=== PATIENT | female | born 1985 | race Caucasian/White ===

== ENCOUNTER 2020-02-29 12:37 | Emergency (ER) | payer SELFPAY ==
[~2020-02-29] VITALS: Ht 165.1 cm; Wt 64.5 kg
[2020-02-29 12:50] VITALS: BP 114/73
--- NOTE | 2020-02-29 13:00 | NUR ---
C/O ABCESS-LIKE BUMP TO R BERMUDEZ, PER PT SHE NOTICED IT 2 DAYS AGO AND STATES IT IS A SPIDER BITE. ERYTHEMA, WARMTH/TENDERNESS & SWELLING NOTED TO AREA SURROUNDING THE BUMP. PT DENIES FEVER, N/V. PT ADMITS TO METHAMPHETAMINE USE BUT DENIES "POPPING". BED IN LOW POSITION, SIDE RAIL UP X1. PT CHANGED INTO GOWN.
--- NOTE | 2020-02-29 13:06 | NUR ---
DR. JIMENEZ EVALUATING PT AT BEDSIDE
[2020-02-29] MEDS ORDERED: LIDOCAINE/PRILOCAINE 2.5% 5 GM TUBE TP ONE (13:10)
--- NOTE | 2020-02-29 14:11 | NUR ---
Patient discharged with v/s stable. Written and verbal after care instructions given and explained. Patient alert, oriented and verbalized understanding of instructions. Ambulatory with steady gait. All questions addressed prior to discharge. ID band removed. Patient advised to follow up with PMD. Rx of BACTRIM, TYLENOL given. Patient educated on indication of medication including possible reaction and side effects. Opportunity to ask questions provided and answered.
[2020-02-29 14:12] VITALS: BP 114/73
== END 2020-02-29 14:11 | disposition home or self-care (01) ==
LOC: MED 12:37
DX: L02.415 Cutaneous abscess of right lower limb (principal); F17.210 Nicotine dependence, cigarettes, uncomplicated; F15.10 Other stimulant abuse, uncomplicated; R56.9 Unspecified convulsions; Z88.0 Allergy status to penicillin
CPT/HCPCS: 99282; 99283

== ENCOUNTER 2020-07-28 11:47 | Emergency (ER) | payer MEDICAID ==
[~2020-07-28] VITALS: Ht 167.6 cm; Wt 67.6 kg
[2020-07-28 11:50] VITALS: BP 125/79
--- NOTE | 2020-07-28 12:29 | NUR ---
AMBULATED TO BED 6
--- NOTE | 2020-07-28 12:36 | NUR ---
35 y/o female from streets c/o abd discomfort x 3 wks with nausea/vomiting x 3 days. Pt states she is unable to eat food without vomiting. 8/10 abd pain provoked by vomiting. LMP was approx 3 months ago, does not remember LMP. Abd soft, round, nontender to palp, bowel sounds active x 4 quad. VSS medhx: seizures
--- NOTE | 2020-07-28 12:38 | NUR ---
Lab at bedside for blood draw.
[2020-07-28 12:48] LABS: BASOPHILS # (AUTO) 0.1 K/uL (0.00-0.22); BASOPHILS % (AUTO) 0.5 % (0.0-2.0); EOSINOPHILS % (AUTO) 0.1 % (0.0-4.0); HEMATOCRIT 39.8 % (36-48); HEMOGLOBIN 13.5 g/dL (12.0-16.0); LYMPHOCYTES # (AUTO) 1.2 K/uL (2.5-16.5); LYMPHOCYTES % (AUTO) 8.3 % (20.5-51.1); MEAN CORPUSCULAR HEMOGLOBIN 29 pg (27-31); MEAN CORPUSCULAR HGB CONC 34 g/dL (33-37); MEAN CORPUSCULAR VOLUME 84.8 fL (80-94); MONOCYTES # (AUTO) 0.9 K/uL (0.8-1.0); MONOCYTES % (AUTO) 6.1 % (1.7-9.3); NEUTROPHILS # (AUTO) 12.1 K/uL (1.8-7.7); PLATELET COUNT (AUTO) 371 K/uL (140-450); WHITE BLOOD COUNT (AUTO) 14.3 K/uL (4.8-10.8)
[2020-07-28] MEDS ORDERED: METOCLOPRAMIDE 10 MG TAB PO ONE (13:00)
[2020-07-28 13:02] LABS: ALBUMIN 3.3 g/dL (3.4-5.0); ANION GAP 14.5 (8-16); CARBON DIOXIDE 22.7 mmol/L (21-32); CREATININE 1.2 mg/dL (0.6-1.3); POTASSIUM 3.2 mmol/L (3.5-5.1); TOTAL BILIRUBIN 0.9 mg/dL (0.0-1.0)
[2020-07-28 13:15] LABS: BILIRUBIN,URINE NEGATIVE (NEGATIVE); COLOR,URINE YELLOW (YELLOW); LEUKOCYTE ESTERASE ,URINE TRACE (NEGATIVE); NITRITE, URINE NEGATIVE (NEGATIVE); PH,URINE 6.5 (5.0-9.0); UGLUCOSE 1+ (NEGATIVE)
[2020-07-28 13:26] LABS: APPEARANCE,URINE SLIGHTLY HAZY (CLEAR)
[2020-07-28 13:28] LABS: RBC,URINE 0-5 /HPF (0-5)
[2020-07-28 13:29] LABS: BLOOD, URINE 1+ (NEGATIVE)
[2020-07-28 13:30] LABS: WBC,URINE 0-5 /HPF (0-5)
[2020-07-28 13:33] LABS: BARBITURATE, URINE NEGATIVE ng/ml (NEG <=200); BENZODIAZEPINE, URINE NEGATIVE ng/mL (NEG <=200); CANNABINOID, URINE POS ng/mL (NEG <=50)
[2020-07-28 13:34] LABS: COCAINE, URINE NEGATIVE ng/mL (NEG <=300); OPIATE, URINE NEGATIVE ng/mL (NEG <=2000); PHENCYCLIDINE SCREEN,URINE NEGATIVE ng/mL (NEG <=25)
--- NOTE | 2020-07-28 15:07 | NUR ---
Dr. Eisenberg is reevaluating the patient at bedside.
[2020-07-28 15:16] VITALS: BP 115/73
--- NOTE | 2020-07-28 15:16 | NUR ---
Patient discharged with v/s stable. Written and verbal after care instructions given and explained. Patient alert, oriented and verbalized understanding of instructions. Ambulatory with steady gait. All questions addressed prior to discharge. ID band removed. Patient advised to follow up with PMD. Rx of CEPHALEXIN, REGLAN given. Patient educated on indication of medication including possible reaction and side effects. Opportunity to ask questions provided and answered.
== END 2020-07-28 15:10 | disposition home or self-care (01) ==
LOC: MED 11:47
DX: O21.9 Vomiting of pregnancy, unspecified (principal); O23.41 Unspecified infection of urinary tract in pregnancy, first trimester; R56.9 Unspecified convulsions; Z88.0 Allergy status to penicillin; Z3A.08 8 weeks gestation of pregnancy
CPT/HCPCS: 36415; 76817; 80053; 80305; 81001; 81025; 84702; 85025; 99284; J8597

== ENCOUNTER 2023-05-08 10:17 | Emergency (ER) | payer SELFPAY ==
[~2023-05-08] VITALS: Ht 165.1 cm; Wt 66.7 kg
[2023-05-08 10:28] VITALS: BP 121/72; PULSE 73; RESP 16; TEMP 98.7; O2SAT 99
[2023-05-08 11:05] VITALS: BP 121/72; PULSE 73; RESP 16; TEMP 98.7
[2023-05-08] MEDS ORDERED: IBUP-2213 PO (11:19)
[2023-05-08 11:20] VITALS: O2SAT 99
[2023-05-08] MEDS ORDERED: KETOROLAC 30 MG/ML VIAL IM ONE (11:20)
== END 2023-05-08 11:57 | disposition home or self-care (01) ==
LOC: MED 10:17
DX: K08.89 Other specified disorders of teeth and supporting structures (principal); G44.209 Tension-type headache, unspecified, not intractable; Z86.69 Personal history of other diseases of the nervous system and sense organs; Z79.1 Long term (current) use of non-steroidal anti-inflammatories (NSAID); Z88.0 Allergy status to penicillin
CPT/HCPCS: 81025; 96372; 99283; J1885

== ENCOUNTER 2024-06-06 15:00 | Emergency (ER) | payer MEDICAID ==
[~2024-06-06] VITALS: Ht 167.6 cm; Wt 89.8 kg
[~2024-06-06 15:00] MED LIST: IBUP-2213 PO
[2024-06-06 15:19] VITALS: BP 137/87; PULSE 69; RESP 18; TEMP 97.8; O2SAT 98
[2024-06-06 17:17] LABS: ANION GAP 10.3 (8-16); CALCIUM 9.1 mg/dL (8.5-10.1); CARBON DIOXIDE 28.6 mmol/L (21-32); CREATININE 0.9 mg/dL (0.6-1.3); POTASSIUM 3.9 mmol/L (3.5-5.1)
[2024-06-06] MEDS ORDERED: IBUP-2213 PO (18:07)
[2024-06-06] MEDS: KETOROLAC 30 MG/ML VIAL IM ONE (18:15)
[2024-06-06] MEDS ORDERED: KETOROLAC 30 MG/ML VIAL ONE (18:32)
[2024-06-06 18:50] VITALS: BP 135/74; PULSE 88; RESP 20; TEMP 97.3; O2SAT 97
== END 2024-06-06 18:45 | disposition home or self-care (01) ==
LOC: MED 15:00
DX: R60.9 Edema, unspecified (principal); M54.2 Cervicalgia; Z86.69 Personal history of other diseases of the nervous system and sense organs; Z79.899 Other long term (current) drug therapy; Z88.0 Allergy status to penicillin
CPT/HCPCS: 36415; 80048; 81025; 83880; 96372; 99283; J1885